=== PATIENT | female | born 1960 | race Caucasian/White ===

== ENCOUNTER 2018-12-23 10:10 | Inpatient (IN) | payer OTHER, MEDICARE ==
[2018-12-23] VITALS (10 sets, daily range): BP systolic 101–137; BP diastolic 46–66
[~2018-12-23] VITALS: Ht 162.6 cm; Wt 129.3 kg
[2018-12-23] MEDS ORDERED: ZIAC 10-6.25 MG1 TAB PO (10:16)
[2018-12-23] MEDS ORDERED: PROTONIX40 MG PO (10:16)
[2018-12-23] MEDS ORDERED: ESTRACE1 MG PO (10:16)
[2018-12-23] MEDS ORDERED: LYRICA100 MG PO (10:17)
[2018-12-23] MEDS ORDERED: TOPAMAX50 MG PO (10:17)
[2018-12-23] MEDS ORDERED: ZANAFLEX4 MG PO (10:18)
[2018-12-23] MEDS ORDERED: MOBIC7.5 MG PO (10:18)
[2018-12-23] MEDS ORDERED: TEMAZEPAM30 MG PO (10:19)
[2018-12-23] MEDS ORDERED: CYMBALTA60 MG PO (10:19)
[2018-12-23] MEDS ORDERED: PROZAC40 MG PO (10:19)
--- NOTE | 2018-12-23 10:30 | NUR ---
C/O GONZALEZ AND NECK PAIN. MED PER ORDERS
[2018-12-23 10:42] LABS: BASOPHILS 0.2 % (0-2); EOSINOPHILS 0.2 % (0-7); HEMATOCRIT 40.3 % (36.0-48.0); HEMOGLOBIN 14.1 g/dL (12-16); IMMATURE GRANULOCYTES 0.2 % (0-5); LYMPHOCYTES 30.1 % (15-50); MCH 31.3 pg (26.0-34.0); MCV 89.4 fL (80.0-100.0); MONOCYTES 6.2 % (2-11); NEUTROPHILS 63.1 % (40-80); PLATELET COUNT 223 10x3/uL (130-400); RBC 4.51 10x6/uL (4.00-5.40); RDW 12.9 % (11.5-14.5); WBC 5.3 10x3/uL (4.8-10.8)
[2018-12-23 10:58] LABS: ALBUMIN 3.6 g/dL (3.4-5.0); ANION GAP 11.4 mmol/L (8-16); BILIRUBIN - TOTAL 0.39 mg/dL (0.2-1.3); CALCIUM 9.2 mg/dL (8.5-10.1); CARBON DIOXIDE 27.6 mmol/L (21.0-32.0); PROTEIN - SERUM 7.4 g/dL (6.4-8.2)
--- NOTE | 2018-12-23 11:04 | NUR ---
CONT TO C/O GONZALEZ 09/26 AND NAUSEA. MD NOTIFIED
--- NOTE | 2018-12-23 11:26 | NUR ---
TO CT VIA STRETCHER WITH TECH
[2018-12-23] MEDS ORDERED: VOLTAREN75 MG PO (12:17)
[2018-12-23] MEDS ORDERED: HYDROCODON-ACE1 EAC2 PO (12:17)
[2018-12-23] MEDS ORDERED: MECLIZINE HCL25 MG PO (12:19)
--- NOTE | 2018-12-23 13:39 | NUR ---
PT RESTING COMFORTABLY DENIES NEEDS WHEN THIS NURSE APPROACHED HER. SHE IS AWAKE AND ORIENTED - AT BEDSIDE
--- NOTE | 2018-12-23 14:00 | NUR ---
PT RESTING IN BED WITH SNORING RESP. VSS. S/O AT BS AND REPORTS PT HAS BEEN SLEEPING WELL. AROUSES EASILY WHEN NAME CALLED. REPORTS PAIN AND DIZZINESS RESOLVED
--- NOTE | 2018-12-23 14:13 | NUR ---
ATTEMPTED TO GET BED OOB FOR DISCHARGE. WHEN PT SAT UP, STARTED MOANING "OH MY OH MY, I'M SO DIZZY" PT FLOPPED BACK IN THE BED. NOTIFIED
--- NOTE | 2018-12-23 14:35 | NUR ---
PT MORE AWAKE REQUESTING 7 UP. SMALL SIPS GIVEN THEN PT STARTED DRY HEAVING. DR GUAJARDO NOTIFIED AND MED WITH RADHA
--- NOTE | 2018-12-23 16:07 | NUR ---
REPORT CALLED TO JUVE RODRIGUEZ BY SBAR FORMAT
--- NOTE | 2018-12-23 16:26 | NUR ---
PT ADMITTED TO ROOM #2236. A/OX3. SKIN W/D/P. RESP EVEN/UNLABORED. CONT TO C/O NAUSEA. ZOFRAN ADMIN PER PRN ORDERS.
--- NOTE | 2018-12-23 16:52 | NUR ---
RECEIVED FROM ER ALERT WITH C/O BEING DIZZY AND N/V EARLIER TODAY. IV INTACT AT 100CC/HR TO TOP OF LEFT HAND. FALL PRECAUTIONS IN PLACE WITH YELLOW GOWN, BRACELET, NON-SKID SOCKS, BED ALARM IS ON ECT. BBS ARE CLEAR RESP EVEN WITHOUT LABOR. NO OPEN WOUNDS OR SKIN ISSUES JUST MISSING PIGMENT IN PATCHES OVER BODY. ORIENT TO ROOM INCLUDING CL AND HOW TO USE, ALSO CAUTIONED TO NOT GET OUT OF BED AND CALL FOR ASSIST DUE TO DIZZINESS.
--- NOTE | 2018-12-23 17:30 | NUR ---
SHE IS ABLE TO SIT WITH HOB UP HIGH ENOUGH TO FEED SELF. SHE SAID LONG SHE STAYS STILL THE DIZZINESS IS NOT SO BAD. NEURO CHECKS ARE INTACT WITH NO CHANGE NOTED. CL IN REACH. NO N/V NOTED
--- NOTE | 2018-12-23 20:00 | NUR ---
PT RESTING IN BED. AT BEDSIDE. PT STATES SHE HAS PAIN IN NECK THEN STARTS TO CRY OUT. PT IS AAO, HAS D5NS INFUSING AT 100 TO LEFT HAND PIV PT STATES PAIN IN NECK AND BACK. WILL CHECK ORDERS PT BEDLOW AND CALL LIGHT IN REACH. NAME AND DATE PLACED ON BOARD. WILL CPOC
--- NOTE | 2018-12-23 22:02 | NUR ---
NORCO GIVEN FOR PAIN IN NECK AND BACK. NIGHT TIME MEDICATIONS GIVEN. PT VERBLAIZED UNDERSTANDING OF ALL MEDICATIONS. PT STATES SHE HAS NOT URINATED ALL DAY. BLADDER DISTENDED UPON PALPATION. BLADDER SCAN SHOWED 450 IN BLADDER. WILL CALL DOCTOR REGARDING RESULTS. PT REFUSES FSBS DUE TO NOT BEING DIABETIC. WILL CPOC
[2018-12-24] VITALS (7 sets, daily range): BP systolic 105–132; BP diastolic 46–64
--- NOTE | 2018-12-24 00:44 | NUR ---
18 FR JETT PLACED INTO PT WITHOUT RESISTANCE, STRAW COLORED CLEAR URINE OUTPUT. OVER 600ML OUT. BLADDER NOW NON DISTENDED. PT STATES PAIN IN NECK FEELS BETTER. NOURISHMENT WITHIN REACH. PT HAS NO S/S OF DISTRESS. BEDLOW AND CALL LIGHT IN REACH. WILL CPOC
[2018-12-24 02:32] LABS: APPEARANCE CLEAR (CLEAR); BILIRUBIN NEGATIVE (NEGATIVE); COLOR YELLOW (YELLOW); GLUCOSE NEGATIVE (NEGATIVE); KETONE SMALL mg/dL (NEGATIVE); NITRITE NEGATIVE (NEGATIVE); PROTEIN NEGATIVE (NEGATIVE); UROBILINOGEN NORMAL (NORMAL)
[2018-12-24 06:46] LABS: ANION GAP 15.6 mmol/L (8-16); CALCIUM 9.3 mg/dL (8.5-10.1); CARBON DIOXIDE 24.5 mmol/L (21.0-32.0); CREATININE - SERUM 0.9 mg/dL (0.6-1.3); POTASSIUM - SERUM 4.1 mmol/L (3.5-5.1)
[2018-12-24 07:00] LABS: BASOPHILS 0 % (0-2); EOSINOPHILS 0 % (0-7); HEMATOCRIT 40.2 % (36.0-48.0); HEMOGLOBIN 13.9 g/dL (12-16); IMMATURE GRANULOCYTES 0.3 % (0-5); LYMPHOCYTES 10.7 % (15-50); MCH 31.2 pg (26.0-34.0); MCHC 34.6 g/dL (31.0-37.0); MCV 90.3 fL (80.0-100.0); MEAN PLATELET VOLUME 10.1 fL (7.4-10.4); MONOCYTES 3.6 % (2-11); NEUTROPHILS 85.4 % (40-80); RBC 4.45 10x6/uL (4.00-5.40); RDW 12.6 % (11.5-14.5)
--- NOTE | 2018-12-24 07:00 | NUR ---
ALERT LYING IN BED. STATES SHE IS STILL DIZZY AND HER HEAD HURTS ON AND OFF, BUT IF SHE LAYS STILL ITS BETTER. ABLE TO MOVE ALL EXTREMITIES UPON DEMAND. DENIES ANY WEAKNESS IN LEGS. RESP EVEN WITHOUT LABOR. SMALL LACERATION TO LEFT FOREHEAD. NEURO CHECKS INTACT.
[2018-12-24 07:10] LABS: PLATELET COUNT 280 10x3/uL (130-400); WBC 10.9 10x3/uL (4.8-10.8)
--- NOTE | 2018-12-24 08:30 | NUR ---
LYRICA DOSE THIS AM WAS HELD DUE TO HER SAYING SHE ONLY TAKES 100MG AT HS NOT DURING THE DAY, ALSO CYMBALTA 60MG NOT GIVEN DUE TO HER SAYING SHE ONLY TAKES IT AT NIGHT.
--- NOTE | 2018-12-24 10:35 | NUR ---
LEFT PER INA WITH TECH FOR MRI. ALERT RESP EVEN WITHOUT LABOR
--- NOTE | 2018-12-24 11:22 | NUR ---
RETURN FROM MRI. ALERT NO CHANGE IN STATUS.
--- NOTE | 2018-12-24 11:52 | NUR ---
ORTHOSTATIC BLOOD PRESSURES DONE. LYING RESULT WAS 129/63, SITTING IT WAS 154/91, AND STANDING 95/71. SHE DID BEAR HER OWN WEIGHT BUT UPON STANDING SHE BECAME MORE DIZZY. AFTER BLOOD PRESSURE OBTAINED SHE HAD TO BE ASSISTED BACK IN BED AND PULLED UP IN BED. SHE WAS ABLE TO USE HER LEGS TO HELP BUT C/O DIZZINESS THAT CONTINUED EVEN AFTER LYING BACK DOWN FOLLOWED BY NAUSEA. SHE WAS MEDICATED WITH ZOFRAN. WHILE SITTING SHE DID HAVE SOME DIZZINESS BUT IT DID PASS BEFORE WE STOOD HER UP.
--- NOTE | 2018-12-24 12:30 | NUR ---
RESTING WITH EASE. CAME BY ON HIS LUNCH BREAK AND SHE WAS SLEEPING. CL IN REACH
--- NOTE | 2018-12-24 14:00 | NUR ---
AWAKE. STATES SHE FEELS SO MUCH BETTER THAN EARLIER WITH HER HEADACHE BETTER. ABLE TO RAISE HOB UP HIGHER IN THE BED WITH NO C/O DIZZINESS. SHE IS FEEDING SELF LUNCH AT THIS TIME.
--- NOTE | 2018-12-24 16:56 | NUR ---
DIZZINESS IS BETTER SHE IS LAUGHING MORE AND TALKING TO SPOUSE IN ROOM. F/C IS DRAINING YELLOW URINE. PO FLUIDS TAKEN WELL. SALINE LOCK INTACT TO LEFT HAND.
--- NOTE | 2018-12-24 19:43 | NUR ---
RECEIVED REPORT, WILL ASSUME CARE OF PT, ASKING FOR LIGHT TO BE TURNED OFF, BED IS LOW, SRX2, CALL LIGHT IN REACH, WILL CONTINUE PLAN OF CARE
--- NOTE | 2018-12-24 23:49 | NUR ---
VITALS LYING-105/46, 63,16 SITTING -138/60,72,16 STANDING 148/53, 83,18
[2018-12-25] VITALS (9 sets, daily range): BP systolic 17–197; BP diastolic 49–109
--- NOTE | 2018-12-25 02:25 | NUR ---
I have reviewed this patient and I concur with the Shift Assessment completed by the Licensed Practical Nurse today this shift.
[2018-12-25 07:07] LABS: BASOPHILS 0.5 % (0-2); HEMOGLOBIN 12.9 g/dL (12-16); IMMATURE GRANULOCYTES 0.3 % (0-5); LYMPHOCYTES 34.9 % (15-50); MCH 30.9 pg (26.0-34.0); MCHC 33.9 g/dL (31.0-37.0); MCV 90.9 fL (80.0-100.0); MEAN PLATELET VOLUME 9.8 fL (7.4-10.4); MONOCYTES 6.2 % (2-11); NEUTROPHILS 57.1 % (40-80); PLATELET COUNT 224 10x3/uL (130-400); RBC 4.18 10x6/uL (4.00-5.40); RDW 12.9 % (11.5-14.5)
[2018-12-25 07:10] LABS: WBC 5.9 10x3/uL (4.8-10.8)
[2018-12-25 07:15] LABS: ANION GAP 11.5 mmol/L (8-16); CALCIUM 8.7 mg/dL (8.5-10.1); CARBON DIOXIDE 27.3 mmol/L (21.0-32.0); CREATININE - SERUM 1.3 mg/dL (0.6-1.3); POTASSIUM - SERUM 3.8 mmol/L (3.5-5.1)
--- NOTE | 2018-12-25 08:00 | NUR ---
A/A/OX4. DENIES ANY PAIN BUT C/O "TERRIBLE DIZZINESS" WHEN SHE TRIES TO SIT OR STAND. ORTHOSTATIC B/P TAKEN WITH READINGS OF LYING-149/59 SITTING-158/101 STANDING-197/109. JETT PATENT AND DRAINING LIGHT YELLOW URINE TO BEDSIDE DRAINAGE. ASSESSMENT COMPLETED AND WILL CONTINUE POC.
--- NOTE | 2018-12-25 15:49 | NUR ---
I have reviewed this patient and I concur with the Shift Assessment completed by the Licensed Practical Nurse today this shift.
--- NOTE | 2018-12-25 18:29 | NUR ---
20 GA IV STARTED IN RIGHT AC FOR USE BY CT. PT TOLERATED WELL.
--- NOTE | 2018-12-25 19:34 | NUR ---
RECIEVED LAYING IN BED WITH EYES OPEN AND HOB ELEVATED. TV ON AND FAMILY AT BEDISDE. ALERT AND ORIENTED X4. C/O CONTINUING TO BE LIGHT HEADED. ORTHO B/P ORDER Q SHIFT. DENIES ANY N/V. EATING SONIC CHICKEN AND TATOR TOTS WITH LARGE ICE CREAM IN CUP. PT STATES "I'M NOT DIABETIC. I DON'T KNOW WHY THEY ARE TAKING MY SUGARS". DENIES ANY NEEDS AT THIS TIME.
[2018-12-26] VITALS (7 sets, daily range): BP systolic 129–154; BP diastolic 36–81
--- NOTE | 2018-12-26 04:16 | NUR ---
ORTHOSTATIC B/P ARE LYING 159/58,SITTING 169/80 AND STANDING 166/87.
[2018-12-26 06:21] LABS: BASOPHILS 0.4 % (0-2); EOSINOPHILS 1.7 % (0-7); HEMATOCRIT 37.1 % (36.0-48.0); HEMOGLOBIN 12.5 g/dL (12-16); IMMATURE GRANULOCYTES 0.2 % (0-5); LYMPHOCYTES 36.1 % (15-50); MCH 30.9 pg (26.0-34.0); MCHC 33.7 g/dL (31.0-37.0); MCV 91.8 fL (80.0-100.0); MEAN PLATELET VOLUME 10.1 fL (7.4-10.4); MONOCYTES 6.9 % (2-11); NEUTROPHILS 54.7 % (40-80); PLATELET COUNT 234 10x3/uL (130-400); RBC 4.04 10x6/uL (4.00-5.40); RDW 13.2 % (11.5-14.5); WBC 5.4 10x3/uL (4.8-10.8)
--- NOTE | 2018-12-26 07:00 | NUR ---
RECEIVED REPORT. ASSUMED CARE OF PATIENT. PATIENT RESTING IN BED WITH EYES OPEN, MALE VISITOR AT BEDSIDE. PATIENT STATES SHE IS TIRED THIS MORNING AND TELLS THIS TOGGLE PRESS OPERATOR THAT WHEN SHE GETS UP OR SITS UP SHE IS DIZZY. CALL LIGHT WITHIN REACH. SR UP FOR SAFETY. NO DISTRESS.
[2018-12-26 09:09] LABS: ANION GAP 15.6 mmol/L (8-16); CALCIUM 8.4 mg/dL (8.5-10.1); CARBON DIOXIDE 22.4 mmol/L (21.0-32.0)
[2018-12-26 09:15] LABS: CREATININE - SERUM 0.9 mg/dL (0.6-1.3)
--- NOTE | 2018-12-26 11:16 | NUR ---
FSBS 82. NO INSULIN PER SLIDING SCALE.
--- NOTE | 2018-12-26 15:09 | NUR ---
MEDICATED FOR HEADACHE AT THIS TIME. NO DISTRESS. CALL LIGHT WITHIN REACH.
--- NOTE | 2018-12-26 16:33 | NUR ---
FSBS 97. NO INSULIN PER SLIDING SCALE.
--- NOTE | 2018-12-26 20:27 | NUR ---
RECIEVED LAYING IN BED WITH EYES OPEN AND TV ON. ALERT AND ORIENTED X4. STATES " I FEEL MUCH BEETER TODAY". DENIES ANY LIGHT HEADEDNESS OR DIZZINESS AT THIS TIME. F/C INTACT WITH CLEAR YELLOW URINE DRAINING TO BEDSIDE DRAINAGE BAG. IV TO LEFT HAND WITH NS INFUSING AT 75CC/HR. NO REDNESS OR SWELLING TO SITE. IV TO RIGHT AC SL.. LUNG SOUNDS CLEAR AND BSX4Q. DENIES ANY NEEDS AT THIS TIME.
[2018-12-27] VITALS: BP 130/59
[2018-12-27 04:00] VITALS: BP 134/56
--- NOTE | 2018-12-27 04:38 | NUR ---
RESTING IN BED WITH EYES CLOSED. HAS REQUESTED IV BE STOPPED EARLIER. NOT RUNNING AT THIS TIME. ALSO, HAD VOICED DIFFICULTY SLEEPING. NO S/S OF DISTRESS AT THIS TIME.
[2018-12-27 06:21] LABS: BASOPHILS 0.2 % (0-2); EOSINOPHILS 1.8 % (0-7); HEMATOCRIT 36.3 % (36.0-48.0); HEMOGLOBIN 12.3 g/dL (12-16); LYMPHOCYTES 35.4 % (15-50); MCH 30.7 pg (26.0-34.0); MCHC 33.9 g/dL (31.0-37.0); MCV 90.5 fL (80.0-100.0); MEAN PLATELET VOLUME 9.6 fL (7.4-10.4); MONOCYTES 6.3 % (2-11); NEUTROPHILS 56.3 % (40-80); PLATELET COUNT 198 10x3/uL (130-400); RBC 4.01 10x6/uL (4.00-5.40); RDW 12.7 % (11.5-14.5); WBC 4.4 10x3/uL (4.8-10.8)
[2018-12-27 07:04] LABS: CALC OSMOLALITY 283 mosm/kg (275-300); CALCIUM 8.4 mg/dL (8.5-10.1); CARBON DIOXIDE 27.7 mmol/L (21.0-32.0); CHLORIDE - SERUM 108 mmol/L (98-107); CREATININE - SERUM 0.8 mg/dL (0.6-1.3); GLUCOSE 88 mg/dL (74-106); POTASSIUM - SERUM 3.9 mmol/L (3.5-5.1); SODIUM 142 mmol/L (136-145); UREA NITROGEN 19 mg/dL (7-18); eGFR NON AFRICAN AMERICAN 78 mL/min (90-120)
--- NOTE | 2018-12-27 07:39 | NUR ---
REPORT RECEIVED. WILL CONTINUE WITH POC. PT CURRENTLY LYING SEMI FOWLERS. CALL LIGHT W/I REACH. AT BEDSIDE. PT IS AAO AND BEDFAST. RR EVEN AND UNLABORED ON RA. L.HAND AND R.AC PIVS ARE SALINE LOCKED. NO S/S OF DISTRESS NOTED. PT DENIES ANY NEEDS AT THIS TIME. WILL CTM.
[2018-12-27 08:25] VITALS: BP 148/53
[2018-12-27 11:28] VITALS: BP 139/62
[2018-12-27 13:24] VITALS: Ht 162.6 cm; Wt 129.3 kg
[2018-12-27 15:27] VITALS: BP 178/67
--- NOTE | 2018-12-27 19:43 | NUR ---
RECIEVED UP IN BED WITH EYES OPEN AND TV ON. ALERT AND ORIENTED X4. STATES DIZZINESS MUCH BETTER TODAY. REFUSES IV FLUIDS AND IV SITE TO RIGHT AC. ASKED TO HAVE IT D/C,D. EXPLAINED THAT IF WE NEEDED TO GIVE HER SOMETHING WE WOULD HAVE TO RESTART IT. STATED " GO AHEAD AND LEAVE IT". DENIES ANY OTHER NEEDS AT THIS TIME.
[2018-12-27 20:00] VITALS: BP 124/67
[2018-12-28] VITALS: BP 158/50
[2018-12-28 04:00] VITALS: BP 140/67
[2018-12-28 06:30] LABS: BASOPHILS 0.4 % (0-2); EOSINOPHILS 1.8 % (0-7); HEMATOCRIT 36.2 % (36.0-48.0); HEMOGLOBIN 12.2 g/dL (12-16); IMMATURE GRANULOCYTES 0.2 % (0-5); LYMPHOCYTES 30.5 % (15-50); MCH 30.3 pg (26.0-34.0); MCHC 33.7 g/dL (31.0-37.0); MCV 89.8 fL (80.0-100.0); MEAN PLATELET VOLUME 9.9 fL (7.4-10.4); MONOCYTES 6.6 % (2-11); NEUTROPHILS 60.5 % (40-80); PLATELET COUNT 225 10x3/uL (130-400); RBC 4.03 10x6/uL (4.00-5.40); RDW 12.7 % (11.5-14.5); WBC 4.9 10x3/uL (4.8-10.8)
[2018-12-28 07:11] LABS: CALC OSMOLALITY 284 mosm/kg (275-300); CALCIUM 8.9 mg/dL (8.5-10.1); CARBON DIOXIDE 28.7 mmol/L (21.0-32.0); CHLORIDE - SERUM 106 mmol/L (98-107); CREATININE - SERUM 0.6 mg/dL (0.6-1.3); GLUCOSE 89 mg/dL (74-106); POTASSIUM - SERUM 3.6 mmol/L (3.5-5.1); SODIUM 143 mmol/L (136-145); UREA NITROGEN 16 mg/dL (7-18); eGFR NON AFRICAN AMERICAN > 90 mL/min (90-120)
--- NOTE | 2018-12-28 07:43 | NUR ---
RAOUNDING DONE WITH PATIENT LAYING ON LEFT SIDE, EYES CLOSED. RESP ARE EVEN. ON ROOM AIR. LEFT HAND PIV SEEN WITH SALINE LOCK. FOELY CATH SEEN WITH YELLOW URINE. ON EP, K+ IS 3.6.
--- NOTE | 2018-12-28 08:29 | NUR ---
CALLED TO ROOM PER CALL LIGHT. PATIENT STATES SHE IS VERY AGITATED AND UPSET THAT SHE HAS BEEN AWOKEN THIS AM. STATES THAT SHE DOES NOT WANT TO BE DISTURBED FOR AWHILE. SIGN PLACED ON DOOR.
[2018-12-28 12:10] VITALS: BP 161/68
--- NOTE | 2018-12-28 14:30 | NUR ---
JETT CATH REMOVED WITH TIP INTACT.
--- NOTE | 2018-12-28 16:49 | NUR ---
PATIENT IS VERY UPSET THAT PATIENT'S LYRICA IS TO BE CONTINUED ON HOME MEDS LIST. HE STATES THAT SHE IS NOT SUPPOSE TO BE ON IT AND THAT IS WHAT CAUSED HER PROBLEM. I HAVE TRIED SEVERAL TIMES TO EXPLAIN TO THE SPOUSE THAT EVEN THOUGH SHE IS ON THE LYRICA ON THE LIST THAT IF HE FEELS SHE DOES NOT NEED TO BE ON IT TO NOT TAKE IT UNTIL TALKING TO THE DOCTOR. HE IS VERY INTENSE AND AGGITATED ABOUT THIS. IS TRYING TO CALM HIM DOWN. SPOUSE STATES THAT SINCE HE IS IN MEDICAL RECORDS AND WITH DOCUTMENTATION, THAT SHE HAS TO TAKE IT. PAGE INTO DR PEACOCK TO COME TALK TO SPOUSE AND PATIENT. DR PEACOCK TO CALL BACK AND SITUATION IS EXPLAINED TO HIM. HE STATES THAT HE WILL COME TALK TO THEM. HE IS HERE NOW.
--- NOTE | 2018-12-28 17:04 | MORECARE ---
CASE MANAGEMENT DISCHARGE SUMMARY PATIENT: VANDA DEMPSEY UNIT: [id number] ADM DATE: 12/24/18 AGE: 58 : 58 SEX: F ROOM/BED: D.2136 AUTHOR: ROSS,DOC PHYSICIAN: REFERRING PHYSICIAN: NATALY GORE MD DATE OF SERVICE: 12/28/18 Discharge Plan Patient Name: VANDA DEMPSEY Facility: [facility]:[place] : 1960 Planned Disposition: Outpatient clinics\services (Programs) Anticipated Discharge Date: 12/28/18 Discharge Date: Expected LOS: 4 Initial Reviewer: [email or web address] Initial Review Date: 12/28/2018 Generated: 12/28/18 6:04 pm DCPIA - Discharge Planning Initial Assessment Updated by DIANA: Wilber Miranda on 12/28/18 4:57 pm * Is the patient Alert and Oriented? Yes * How many steps to enter\exit or inside your home? NONE * PCP DR. MARILIN WILLAMS IN [place] (NOT SEEN IN 2-3 MONTHS) [address]. CHOI IN [place] (HAS APPOINTMENT NEW PATIENT 03-07) * Pharmacy [facility]. * Preadmission Environment Home with Family * ADLs Independent * Equipment Walker * Other Equipment NO MEDICAL EQUIPMENT PROVIDER PREFERENCE * List name and contact numbers for known caregivers / representatives who currently or will assist patient after discharge: SUN DEMPSEY, SPOUSE, * Verbal permission to speak to the caregivers and representatives has been obtained from the patient. N/A * Community resources currently utilized None * Please name any agencies selected above. NONE * Additional services required to return to the preadmission environment? No * Can the patient safely return to the preadmission environment? Yes * Has this patient been hospitalized within the prior 30 days at any hospital? No Coverage Notice Reviewer: [id number] - Wilber Miranda Notice Issued Date-Time: 12/28/2018 15:20 Notice Type: IM Discharge Notice Notice Delivered To: Patient Relationship to Patient: Obiee Lead Developer Name: Delivery Method: HAND - Hand Delivered Verito Days: Prior Verbal Notification: Recipient Understood Notice: Yes Recipient Signature: Yes Med Rec Note Co-signed by Attending: Coverage Notice Comment: Patient Name: VANDA DEMPSEY Page [phone] at 1704 All edits/amendments must be made on the electronic document DICTATION DATE: 12/28/181702 DENTAL PATIENT COORDINATOR: BARB 12/28/181702 RPT#: [id number] DC DATE: STATUS: ADM IN [facility] [address] [place] [address] END OF REPORT
[2018-12-28] MEDS ORDERED: LYRICA100 MG PO (17:08)
--- NOTE | 2018-12-28 17:14 | MORECARE ---
CASE MANAGEMENT DISCHARGE SUMMARY PATIENT: VANDA DEMPSEY UNIT: [id number] ADM DATE: 12/24/18 AGE: 58 : 58 SEX: F ROOM/BED: D.2026 AUTHOR: ROSS,DOC PHYSICIAN: REFERRING PHYSICIAN: NATALY GORE MD DATE OF SERVICE: 12/28/18 Discharge Plan Patient Name: VANDA DEMPSEY Facility: [facility]:[place] : 1960 Planned Disposition: Outpatient clinics\services (Programs) Anticipated Discharge Date: 12/28/18 Discharge Date: Expected LOS: 4 Initial Reviewer: [email or web address] Initial Review Date: 12/28/2018 Generated: 12/28/18 6:14 pm Comments DCP- Discharge Planning Updated by [id number]: Wilber Miranda on 12/28/18 4:[address] Patient Name: VANDA DEMPSEY Admission Status: ER Accout number: [id number] Admission Date: 12-24-2018 : 1960 Admission Diagnosis:DIZZINESS AND GIDDINESS Attending: NATALY GORE Current LOS: 4 Anticipated DC Date: 12-28-2018 Planned Disposition: Outpatient clinics\services (Programs) Primary Insurance: [facility] PLANNED EXTERNAL PROVIDER: [facility] OUTPATIENT PHYSICAL THERAPY Discharge Planning Comments: CM MET WITH PT IN ROOM TO DISCUSS DISCHARGE PLANNING AND NEEDS. PT REPORTS LIVING AT HOME INDEPENDENTLY WITH HER SPOUSE. PT HAS AN OLD WALKER AT HOME WITH NO MEDICAL EQUIPMENT PROVIDER PREFERENCE. PT HAS NO OUTSIDE SERVICES ASSISTING IN THE HOME. CM DISCUSSED AVAILABILITY OF HOME HEALTH, REHAB SERVICES AND MEDICAL EQUIPMENT. PT WANTS THERAPY SERVICES OUTPATIENT; PT HAS NOT SEEN HER PRIMARY DOCTOR IN TWO OR THREE MONTHS IN [place] AND HAS AN APPOINTMENT WITH DR. CHOI IN FEBRUARY A NEW PATIENT, DR. PEACOCK ARRIVED IN ROOM, DISCUSSED PT'S NEEDS WITH PT, DR. PEACOCK INFORMED CM THAT HE WILL FOLLOW FOR OUTPATIENT PHYSICAL THERAPY ORDERS AND ASKED CM TO CHECK WITH DR. BANG IN DR. REICH'S OFFICE TO SEE IF CM COULD GET PT IN THERE A NEW PATIENT. 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 PT REPORTS HER SPOUSE WILL PICK HER UP FOR DISCHARGE HOME. IMPORTANT MESSAGE FROM MEDICARE PROVIDED AND EXPLAINED. CM CALLED DR. BANG'S OFFICE, , WAS ADVISED THAT THE DOCTOR IS ACCEPTING NEW PATIENTS BUT WILL NOT BE SCHEDULING FOR THE NEXT ONE OR TWO WEEKS DUE TO DOCTOR NOT YET KNOWING WHAT HER SCHEDULE WILL BE.. CM PROVIDED PT WITH DOCTOR BETI'S CONTACT INFORMATION AND ADVISED HER TO CALL AND SCHEDULE WITH THE DOCTOR IN THE NEXT TWO WEEKS IF SHE WANTS TO TRY TO HAVE HER A PRIMARY CARE DOCTOR. PT REPORTS UNDERSTANDING, DENIES FURTHER NEEDS. CM CALLED [facility] AT [facility], PROVIDED REFERRAL INFORMATION, FAXED ORDER AND FACE SHEET TO REHAB FOR OUTPATIENT APPOINTMENT SCHEDULING. [facility] WILL CALL PT TOMORROW TO SCHEDULE OUTPATIENT PHYSICAL THERAPY. PT NOTIFIED WHO DENIED FURTHER DISCHARGE NEEDS. Network Coordinator: Wilber Miranda DCPIA - Discharge Planning Initial Assessment Updated by [email or web address]: Wilber Miranda on 12/28/18 4:57 pm * Is the patient Alert and Oriented? Yes * How many steps to enter\exit or inside your home? NONE * PCP DR. MARILIN WILLAMS IN [place] (NOT SEEN IN 2-3 MONTHS) [address]. CHOI IN [place] (HAS APPOINTMENT NEW PATIENT 03-07) * Pharmacy [facility]. * Preadmission Environment Home with Family * ADLs Independent * Equipment Walker * Other Equipment NO MEDICAL EQUIPMENT PROVIDER PREFERENCE * List name and contact numbers for known caregivers / representatives who currently or will assist patient after discharge: SUN DEMPSEY, SPOUSE, * Verbal permission to speak to the caregivers and representatives has been obtained from the patient. N/A * Community resources currently utilized None * Please name any agencies selected above. NONE * Additional services required to return to the preadmission environment? No * Can the patient safely return to the preadmission environment? Yes * Has this patient been hospitalized within the prior 30 days at any hospital? No Coverage Notice Reviewer: [id number] - Wilber Miranda Notice Issued Date-Time: 12/28/2018 15:20 Notice Type: IM Discharge Notice Notice Delivered To: Patient Relationship to Patient: Database Consultant Name: Delivery Method: HAND - Hand Delivered Verito Days: Prior Verbal Notification: Recipient Understood Notice: Yes Recipient Signature: Yes Med Rec Note Co-signed by Attending: Coverage Notice Comment: Last DP export: 12/28/18 4:04 p Patient Name: VANDA DEMPSEY Page [phone] at 1714 All edits/amendments must be made on the electronic document DICTATION DATE: 12/28/181712 SERVICE DISMANTLER: BARB 12/28/181712 RPT#: [id number] DC DATE: STATUS: ADM IN [facility] [address] [place] [address] END OF REPORT
--- NOTE | 2018-12-28 17:25 | NUR ---
VERBAL AND WRITTEN DISCHARGE INSTRUCTIONS GIVEN TO PATIENT AND SPOUSE WITH NEW HOME MED REC OF DWAYNE MANJARREZ. SALINE LOCK REMOVED WITH CATH TIP INTACT. DISCHARGED HOME VIA WHEELCHAIR.
== END 2018-12-28 17:30 | disposition home or self-care (01) | DRG 149 ==
LOC: D.ER 10:10 → D.M2 15:45 → OBSVTIME 15:46 → D.M2 12-24 14:03
PROVIDERS: Emergency Medicine; ADMIT Internal Medicine Nephrology; ATTEND Internal Medicine Nephrology
DX: R42 Dizziness and giddiness (principal); N17.9 Acute kidney failure, unspecified; G89.29 Other chronic pain; W19.XXXA Unspecified fall, initial encounter; S00.81XA Abrasion of other part of head, initial encounter; I10 Essential (primary) hypertension; K21.9 Gastro-esophageal reflux disease without esophagitis; G89.4 Chronic pain syndrome; F32.9 Major depressive disorder, single episode, unspecified; F41.9 Anxiety disorder, unspecified; T42.8X5A Adverse effect of antiparkinsonism drugs and other central muscle-tone depressants, initial encounter; T43.215A Adverse effect of selective serotonin and norepinephrine reuptake inhibitors, initial encounter

== ENCOUNTER 2019-06-22 13:41 | Observation (INO) | payer MEDICARE, OTHER ==
[~2019-06-22] VITALS: Ht 162.6 cm; Wt 113.6 kg
[~2019-06-22 13:41] MED LIST: CYMBALTA60 MG PO; ESTRACE1 MG PO; HYDROCODON-ACE1 EAC2 PO; LYRICA100 MG PO; MECLIZINE HCL25 MG PO; MOBIC7.5 MG PO; PROTONIX40 MG PO; PROZAC40 MG PO; TEMAZEPAM30 MG PO; TOPAMAX50 MG PO; VOLTAREN75 MG PO; ZANAFLEX4 MG PO; ZIAC 10-6.25 MG1 TAB PO
[2019-06-22 14:58] LABS: HEMATOCRIT 38.3 % (36.0-48.0); HEMOGLOBIN 13.3 g/dL (12-16); LYMPHOCYTES 35.3 % (15-50); MCH 31.4 pg (26.0-34.0); MCHC 34.7 g/dL (31.0-37.0); MCV 90.3 fL (80.0-100.0); MEAN PLATELET VOLUME 9.2 fL (7.4-10.4); NEUTROPHILS 58.3 % (40-80); PLATELET COUNT 226 10x3/uL (130-400); RBC 4.24 10x6/uL (4.00-5.40); RDW 12.7 % (11.5-14.5); WBC 4.6 10x3/uL (4.8-10.8)
[2019-06-22 15:10] LABS: CALC OSMOLALITY 276 mosm/kg (275-300); CALCIUM 9.3 mg/dL (8.5-10.1); CARBON DIOXIDE 30.3 mmol/L (21.0-32.0); CHLORIDE - SERUM 102 mmol/L (98-107); GLUCOSE 98 mg/dL (74-106); POTASSIUM - SERUM 4.4 mmol/L (3.5-5.1); SODIUM 137 mmol/L (136-145); UREA NITROGEN 20 mg/dL (7-18); eGFR NON AFRICAN AMERICAN 60 mL/min (90-120)
[2019-06-22 15:19] LABS: APTT 34.8 SECONDS (22.8-39.4); INR 1.06 (0.85-1.17); PROTIME 13.3 SECONDS (11.6-15.0)
[2019-06-22 15:20] LABS: D-DIMER-QUANTITATIVE 0.4 ug/mLFEU (0.20-0.54)
[2019-06-22 15:25] LABS: ALBUMIN 3.5 g/dL (3.4-5.0); ALKALINE PHOSPHATASE 74 U/L (46-116); ALT (SGPT) 32 U/L (10-68); BILIRUBIN - TOTAL 0.38 mg/dL (0.2-1.3); CKMB 0.7 U/L (0.0-3.6); CREATINE KINASE 81 UL (21-215); PROTEIN - SERUM 6.9 g/dL (6.4-8.2); TROPONIN-I < 0.017 ng/mL (0.000-0.060)
[2019-06-22 16:20] VITALS: BP 134/66; Ht 162.6 cm; Wt 113.6 kg
--- NOTE | 2019-06-22 16:27 | NUR ---
NEW PATIENT ADMIT VIA WC FROM ER. PATIENT ACCOMPANIED BY HOSPITAL STAFF. PATIENT TRANSFERRED TO BED EASILY. PATIENT IS AWAKE, ALERT AND ORIENTED X 4. PATIENT APPEARS IN NO ACUTE DISTRESS AND VSS. PATIENT DENIES ANY NEEDS OR PAIN. PATIENT STATES JUST WANTS TO REST. ASSESSMENT COMPLETED. WILL CONTINUE WITH PLAN OF CARE.
[2019-06-22 19:00] VITALS: BP 131/69
--- NOTE | 2019-06-22 19:17 | NUR ---
RECEIVED BEDSIDE REPORT. PATIENT IS RESTING COMFORTABLY IN BED. RESPIRATIONS ARE EVEN AND UNLABORED. NO S/S OF DISTRESS. NO C/O PAIN. CALL LIGHT WITHIN REACH. WILL CPOC.
[2019-06-22] MEDS ORDERED: CELEBREX 100 M100 MG PO (21:27)
[2019-06-22 21:51] LABS: CKMB 0.6 U/L (0.0-3.6); CREATINE KINASE 67 UL (21-215); TROPONIN-I < 0.017 ng/mL (0.000-0.060)
[2019-06-23] VITALS: BP 104/44
--- NOTE | 2019-06-23 01:19 | NUR ---
PATIENT RESTING COMFORTABLY IN BED. RESPIRATIONS ARE EVEN ANDUNLABORED. NO S/S OF DISTRESS. NO C/O PAIN CALL IGHT WITHIN REACH. WILL CPOC.
[2019-06-23 03:24] LABS: HEMATOCRIT 38.2 % (36.0-48.0); HEMOGLOBIN 12.9 g/dL (12-16); LYMPHOCYTES 44.9 % (15-50); MCH 30.8 pg (26.0-34.0); MCHC 33.8 g/dL (31.0-37.0); MCV 91.2 fL (80.0-100.0); MEAN PLATELET VOLUME 9.5 fL (7.4-10.4); NEUTROPHILS 48.6 % (40-80); PLATELET COUNT 225 10x3/uL (130-400); RBC 4.19 10x6/uL (4.00-5.40); RDW 12.8 % (11.5-14.5); WBC 4.2 10x3/uL (4.8-10.8)
[2019-06-23 03:35] LABS: ALBUMIN 3.1 g/dL (3.4-5.0); ALKALINE PHOSPHATASE 65 U/L (46-116); ALT (SGPT) 27 U/L (10-68); BILIRUBIN - TOTAL 0.31 mg/dL (0.2-1.3); CALC OSMOLALITY 284 mosm/kg (275-300); CALCIUM 8.7 mg/dL (8.5-10.1); CARBON DIOXIDE 30.5 mmol/L (21.0-32.0); CHLORIDE - SERUM 105 mmol/L (98-107); CKMB 0.6 U/L (0.0-3.6); CREATINE KINASE 55 UL (21-215); GLUCOSE 99 mg/dL (74-106); PHOSPHOROUS 4.4 mg/dL (2.5-4.9); POTASSIUM - SERUM 4.3 mmol/L (3.5-5.1); PROTEIN - SERUM 6.7 g/dL (6.4-8.2); SODIUM 142 mmol/L (136-145); THYROID STIMULATING HORMONE 1.89 uIU/mL (0.36-3.74); TROPONIN-I < 0.017 ng/mL (0.000-0.060); UREA NITROGEN 17 mg/dL (7-18); eGFR NON AFRICAN AMERICAN 60 mL/min (90-120)
[2019-06-23 04:00] VITALS: BP 107/55
--- NOTE | 2019-06-23 07:15 | NUR ---
RECEIVED PT IN BED EYES CLOSED RESP UNLABORED SKIN W/D COLOR WNL NAD NOTED
[2019-06-23 09:49] VITALS: BP 130/49
--- NOTE | 2019-06-23 12:21 | NUR ---
WRITTEN TEXT FROM PRASHANT RICHARDS FROM [facility] FOR DISCHARGE.
[2019-06-23 13:37] VITALS: BP 116/56
--- NOTE | 2019-06-23 16:05 | NUR ---
REVIEWED DISCHARGE INSTRUCTIONS WITH PT STATES UNDERSTANDING COPY GIVEN DCD SALINE LOCK TO RT HAND WITH IV CATHETER INTACT SITE FREE OF REDNESS OR EDEMA PT DISCHARGED IN STABLE CONDITION WITH ALL PERSONAL BELONGINGS VIA W/C
--- NOTE | 2019-06-24 09:40 | MORECARE ---
CASE MANAGEMENT DISCHARGE SUMMARY PATIENT: VANDA DEMPSEY UNIT: [id number] ADM DATE: 06/22/19 AGE: 58 : 58 SEX: F ROOM/BED: D.4438 AUTHOR: LENORE HAWKINS PHYSICIAN: REFERRING PHYSICIAN: NATALY GORE MD DATE OF SERVICE: 06/24/19 Discharge Plan Patient Name: VANDA DEMPSEY [facility] [facility] 1960 Planned Disposition: Home Anticipated Discharge Date: 06/23/19 Discharge Date: 06/23/2019 Expected LOS: 1 Initial Reviewer: [email or web address] Initial Review Date: 06/24/2019 Generated: 06/24/19 10:40 am Coverage Notice Reviewer: [id number] Bassam Suazo Notice Issued Date-Time: 06/22/2019 15:00 Notice Type: Medicare Outpatient Observation Notice Notice Delivered To: Family Member Relationship to Patient: Spouse Tourist Cabin Keeper Name: Kyle Dempsey Delivery Method: HAND - Hand Delivered Verito Days: Prior Verbal Notification: Recipient Understood Notice: Yes Recipient Signature: Yes Med Rec Note Co-signed by Attending: Coverage Notice Comment: HERRERA delivered to patient/spouse, signed by spouse Kyle Dempsey. Original given to spouse and also placed on chart. Patient Name: VANDA DEMPSEY Page [phone] at 0940 All edits/amendments must be made on the electronic document DICTATION DATE: 06/24/19939 CONTRACTOR BUYER: BARB 06/24/19939 RPT#: [id number] DC DATE:06/23/19 STATUS: DIS IN [facility] [address] [place] [address] END OF REPORT
== END 2019-06-23 16:05 | disposition home or self-care (01) ==
LOC: D.ER 13:41 → D.M2 14:35 → OBSVTIME 14:59 → D.M2 15:01
PROVIDERS: Family Medicine; ADMIT Internal Medicine Nephrology; ATTEND Internal Medicine Nephrology
DX: I20.0 Unstable angina (principal); E66.01 Morbid (severe) obesity due to excess calories; G89.29 Other chronic pain; I10 Essential (primary) hypertension; K21.9 Gastro-esophageal reflux disease without esophagitis; M79.7 Fibromyalgia; F41.8 Other specified anxiety disorders; M48.02 Spinal stenosis, cervical region

== ENCOUNTER 2019-10-07 06:10 | Emergency (ER) | payer MEDICARE, OTHER ==
[~2019-10-07] VITALS: Ht 162.6 cm; Wt 111.4 kg
[~2019-10-07 06:10] MED LIST changes: +ASPIRIN81 MG PO; +CELEBREX 100 M100 MG PO; +VISTARIL50 MG PO; +oxyCODONE IR PO
[2019-10-07 06:14] VITALS: Ht 162.6 cm; Wt 111.4 kg
[2019-10-07 07:58] VITALS: BP 137/89
== END 2019-10-07 07:59 | disposition home or self-care (01) ==
LOC: D.ER 06:10
DX: S01.91XA Laceration without foreign body of unspecified part of head, initial encounter (principal); W19.XXXA Unspecified fall, initial encounter; Y93.9 Activity, unspecified; Y92.9 Unspecified place or not applicable; I10 Essential (primary) hypertension; K21.9 Gastro-esophageal reflux disease without esophagitis; S09.90XA Unspecified injury of head, initial encounter